=== PATIENT | female | born 1975 | race Two or more races ===

== ENCOUNTER 2023-06-05 14:52 | Emergency (ER) | payer SELFPAY ==
[~2023-06-05] VITALS: Ht 152.4 cm; Wt 60.9 kg
[2023-06-05 16:03] VITALS: BP 170/104; PULSE 95; RESP 15; TEMP 97.4; O2SAT 99
[2023-06-05] MEDS ORDERED: HYDR1TAB97 PO (17:47)
== END 2023-06-05 17:53 | disposition home or self-care (01) ==
LOC: ER 14:52
DX: S82.492A Other fracture of shaft of left fibula, initial encounter for closed fracture (principal); Z79.899 Other long term (current) drug therapy; W19.XXXA Unspecified fall, initial encounter; Y93.89 Activity, other specified; Y92.89 Other specified places as the place of occurrence of the external cause; Y99.8 Other external cause status
CPT/HCPCS: 29505; 73562

== ENCOUNTER 2024-01-10 22:37 | Emergency (ER) | payer MEDICARE, MEDICAID ==
[~2024-01-10] VITALS: Ht 160 cm; Wt 54.5 kg
[~2024-01-10 22:37] MED LIST: HYDR1TAB97 PO
[2024-01-10 22:48] VITALS: BP 107/67; PULSE 69; RESP 16; O2SAT 97
[2024-01-10 23:15] LABS: Hematocrit 35.8 % (36.0-46.0); Mean Corpuscular Hgb Conc. 33.4 g/dL (32.0-36.0); Mean Corpuscular Volume 77.9 fL (80.0-100.0); Red Blood Cells 4.59 10^6/uL (4.0-5.20); White Blood Cell 4.7 10^3/uL (4.4-10.8)
[2024-01-10 23:18] LABS: Band Neutrophils % (manual) 0; Basophils % (manual) 0 (0.0-2.0); Blast Cells 0; Metamyelocytes % 0; Myelocytes % 0; Promyelocytes % 0; Reactive Lymphocytes 0
[2024-01-10 23:33] LABS: Alanine Aminotransferase 17 U/L (7-40); Albumin 4.1 g/dL (3.2-4.8); Alkaline Phosphatase 75 U/L (46-116); Anion Gap 8 (5-15); Aspartate Aminotransferase 17 U/L (13-40); BUN/Creatinine Ratio 8.2 (10.0-20.0); Bilirubin, Total 0.3 mg/dL (0.2-1.0); Blood Urea Nitrogen 6 mg/dL (9-23); Calcium 9.9 mg/dL (8.7-10.4); Carbon Dioxide 25 mmol/L (20-30); Chloride 110 mmol/L (98-107); Glucose 90 mg/dL (74-106); Lipase 74 U/L (12-53); Potassium 3.9 mmol/L (3.5-5.1); Sodium 143 mmol/L (136-145); Total Protein 6.7 g/dL (5.7-8.2)
[2024-01-10 23:47] LABS: Eosinophils % (manual) 4 (0-7); Lymphocytes % (manual) 64 (10.0-50.0); Monocytes % (manual) 6 (0-12); Platelet Estimate Adequate
[2024-01-11] MEDS: ONDANSETRON ODT 4 MG TAB PO ONE (00:49)
[2024-01-11] MEDS: HYDROcodone-ACET 10/325MG TAB PO ONE (00:49)
[2024-01-11 02:00] LABS: Urine Bacteria FEW /hpf (None Seen); Urine Blood Negative /uL (Negative); Urine Clarity Clear (Clear); Urine Color Light-Yellow (Yellow); Urine Protein, UAD 1+ (Negative); Urine Urobilinogen Normal (Negative); Urine WBC 3 /hpf (0 - 5)
[2024-01-11] MEDS ORDERED: IBUP-1455 PO (02:24)
[2024-01-11] MEDS ORDERED: ACE3T PO (02:24)
== END 2024-01-11 03:11 | disposition left against medical advice (07) ==
LOC: EDBD 22:37 → ER 22:37
DX: M54.16 Radiculopathy, lumbar region (principal); M54.50 Low back pain, unspecified; F10.90 Alcohol use, unspecified, uncomplicated; F15.90 Other stimulant use, unspecified, uncomplicated; Z79.899 Other long term (current) drug therapy; Y90.0 Blood alcohol level of less than 20 mg/100 ml
CPT/HCPCS: 36415; 73590; 74176; 80053; 81001; 83605; 83690; 84484; 85007; 85027; 99284; Q0162